=== PATIENT | female | born 1975 | race Caucasian/White ===

== ENCOUNTER 2022-11-18 14:34 | Outpatient (CLI) | payer OTHER, SELFPAY ==
--- NOTE | 2022-11-18 14:40 | CRLHL7_ITS ---
For Patients: As a result of the Century Cures Act, medical imaging exams and procedure reports are released immediately into your electronic medical record. You may view this report before your referring provider. If you have questions, please contact your health care provider. BILATERAL DIGITAL SCREENING MAMMOGRAM WITH COMPUTER-AIDED DETECTION WITH TOMOSYNTHESIS, 11/18/2022 CLINICAL HISTORY: Routine screening exam. COMPARISON: 10/10/2021, 09/26/2020, 09/14/2019, 06/21/2018 TECHNIQUE: Digital mammogram in CC and MLO projections including computer-aided detection (CAD) and tomosynthesis. BREAST COMPOSITION: The breasts are heterogeneously dense, which may obscure small masses. FINDINGS: RIGHT Breast: Focal asymmetric density retroareolar plane 4 cm from the nipple. LEFT Breast: No suspicious findings. IMPRESSION: RIGHT breast asymmetry/mass. RECOMMENDATIONS: Additional mammographic views of the RIGHT breast including 3D spot-compression CC/MLO. RIGHT breast ultrasound may also be required. BI-RADS Category 0: Incomplete: Need Additional Imaging Evaluation and/or Prior Mammograms for Comparison [facility] will contact the patient for follow-up. A lay language report of this examination will be provided to the patient. Dictated by Johnson Dumont MD @ 11/19/2022 11:08:41 AM PT/Dictated by: Johnson Dumont MD @ 11/19/2022 11:08:00 AM (Electronically Signed)
== END 2022-11-18 14:35 | disposition home or self-care (01) ==
LOC: MAMMO 14:35
PROVIDERS: PCP Family Medicine; Visit Provider Family Medicine
DX: Z12.31 Encounter for screening mammogram for malignant neoplasm of breast (principal); N63.10 Unspecified lump in the right breast, unspecified quadrant; R92.2 Inconclusive mammogram
CPT/HCPCS: 77063; 77067

== ENCOUNTER 2023-12-30 14:20 | Outpatient (CLI) | payer BC, SELFPAY ==
--- NOTE | 2023-12-30 14:40 | CRLHL7_ITS ---
For Patients: As a result of the Century Cures Act, medical imaging exams and procedure reports are released immediately into your electronic medical record. You may view this report before your referring provider. If you have questions, please contact your health care provider. BILATERAL SCREENING MAMMOGRAM WITH COMPUTER-AIDED DETECTION AND TOMOSYNTHESIS TECHNIQUE: CC and MLO views were obtained. These mammographic images have been obtained using full-field digital technique. These mammographic images were interpreted with the benefit of computer-aided detection. Breast Tomosynthesis was used in this interpretation. COMPARISON FILM: 11/26/22, 11/18/22, 10/10/21. FINDINGS: The breasts are heterogeneously dense, which may obscure small masses. IMPRESSION: There is no radiographic evidence for malignancy. ASSESSMENT: BI-RADS Category 1: Negative RECOMMENDATION: Routine screening mammogram in 1 year. A lay language report of this examination will be provided to the patient. Johnson Dumont M.D. Diagnostic Radiologist [email or web address] SP/Dictated by: Johnson Dumont MD @ 01/04/2024 10:58:00 AM (Electronically Signed)
== END 2023-12-30 14:21 | disposition home or self-care (01) ==
LOC: MAMMO 14:22
PROVIDERS: PCP Family Medicine; Visit Provider Family Medicine
DX: Z12.31 Encounter for screening mammogram for malignant neoplasm of breast (principal); R92.2 Inconclusive mammogram
CPT/HCPCS: 77063; 77067

== ENCOUNTER 2025-01-24 14:32 | Outpatient (CLI) | payer BC, SELFPAY ==
--- NOTE | 2025-01-24 14:40 | CRLHL7_ITS ---
For Patients: As a result of the Century Cures Act, medical imaging exams and procedure reports are released immediately into your electronic medical record. You may view this report before your referring provider. If you have questions, please contact your health care provider. INDICATION: BILATERAL SCREENING MAMMOGRAM, ASYMPTOMATIC 50 Y/O FEMALE COMPARISON: 12/30/2023, 11/26/2022, 11/18/2022 TECHNIQUE: Digital mammogram in CC and MLO projections including computer-aided detection (CAD) and tomosynthesis. BREAST COMPOSITION: There are scattered areas of fibroglandular density. FINDINGS: No suspicious findings. ASSESSMENT: BI-RADS 1 Negative RECOMMENDATION: Annual screening mammogram. A lay language report of this examination will be provided to the patient. Dictated by: Johnson Dumont MD @ 01/25/2025 12:39:26 (Electronically Signed)
== END 2025-01-24 14:33 | disposition home or self-care (01) ==
LOC: MAMMO 14:33
PROVIDERS: PCP Family Medicine; Visit Provider Family Medicine
DX: Z12.31 Encounter for screening mammogram for malignant neoplasm of breast (principal)
CPT/HCPCS: 77063; 77067